=== PATIENT | male | born 1970 | race African-American/Black ===

== ENCOUNTER → 2018-12-14 | Outpatient (CLI) | payer BC ==
[2017-03-06 15:03] VITALS: BP 180/91
[~2018-12-14] MED LIST: AMLO10TA8 PO; HYDR-2145 PO; LOSA-73 PO
[2018-12-14 17:24] LABS: ALBUMIN 3.8 g/dL (3.4-5.0); CALCIUM 8.8 mg/dL (8.5-10.1); CHOLESTEROL/HDL RATIO 5.6; CREATININE 1.1 mg/dL (0.7-1.3); GFR 87.2; POTASSIUM 3.3 mmol/L (3.5-5.1); TOTAL BILIRUBIN 0.4 mg/dL (0.2-1.0); TOTAL PROTEIN 7.7 g/dL (6.4-8.2)
== END | disposition home or self-care (01) ==
LOC: LAB 16:14
PROVIDERS: ATTEND Internal Medicine Cardiovascular Disease
DX: I10 Essential (primary) hypertension (principal)
CPT/HCPCS: 36415; 80053; 80061; 83721